=== PATIENT | female | born 1995 | race Two or more races ===

== ENCOUNTER 2024-07-17 06:20 | Day surgery (SDC) | payer MEDICAID, SELFPAY ==
[2024-07-16 10:11] VITALS: BMI 39.6
[2024-07-16 11:49] LABS: Basophils % (Auto) 0 % (0-2.5); Eosinophils # (Auto) 0.2 Thou/mm3 (0.0-0.5); Eosinophils % (Auto) 3 % (0-10); Hematocrit 38.3 % (36.0-46.0); Hemoglobin 12.4 g/dL (12.0-16.0); Immature Granulocytes % (Auto) 0 % (0-0); Immature Granulocytes Auto 0.01 Thou/mm3 (0.00-0.00); Lymphocytes # (Auto) 2.6 Thou/mm3 (1.0-4.8); Lymphocytes % (Auto) 37 % (10-50); Mean Corpuscular HGB Conc 32.4 g/dl (31.0-37.0); Mean Corpuscular Hemoglobin 27.2 pg (25.0-35.0); Mean Corpuscular Volume 84 fL (80-100); Monocytes # (Auto) 0.5 Thou/mm3 (0.0-0.8); Monocytes % (Auto) 7 % (0-12); Neutrophils # (Auto) 3.8 Thou/mm3 (1.8-7.7); Neutrophils % (Auto) 53 % (37-80); Nucleated Red Blood Cell % 0 /100 WBC (0); Platelet Count 343 Thou/mm3 (140-440); RDW Standard Deviation 42.4 fL (36.4-46.3); Red Blood Count 4.56 Miln/mm3 (4.00-5.20); White Blood Count 7.2 Thou/mm3 (3.6-11.0)
[2024-07-16 12:02] LABS: Alanine Aminotransferase 23 U/L (10-49); Albumin, Serum 4.7 gm/dL (3.5-5.0); Albumin/Globulin Ratio 1.5 (1.2-2.2); Alkaline Phosphatase 73 U/L (46-116); Anion Gap 6 (7-16); Aspartate Amino Transferase 22 U/L (0-34); BUN/Creatinine Ratio 10 Ratio (12-20); Bilirubin,Total 0.4 mg/dL (0.3-1.2); Blood Urea Nitrogen 8 mg/dL (9-23); Calcium 9.2 mg/dL (8.3-10.6); Calcium (Corrected) 9.2 mg/dL (8.5-10.1); Carbon Dioxide 26.9 mMol/L (20.0-31.0); Chloride 105 mMol/L (98-107); Creatinine (Component) 0.8 mg/dL (0.6-1.3); Estimated Creatinine Clearance 129.1 mL/min (>60); Globulin 3.2 gm/dL (2.3-3.5); Glucose 91 mg/dL (74-106); Osmolality,Calculated 273 (275-295); Potassium 4.4 mMol/L (3.4-5.1); Sodium 138 mMol/L (136-145); Total Protein 7.9 gm/dL (5.7-8.2); eGFR > 60 See Note
[2024-07-16 12:04] LABS: Partial Thromboplastin Time 30.8 Seconds (22.0-36.0); Prothrombin Time 10.9 Seconds (9.0-12.2)
[2024-07-16 12:29] LABS: HCG Qualitative,Urine Negative
--- NOTE | 2024-07-16 14:14 | SUR.PREOP ---
Pt notified to come in at 0630 tomorrow for surgery.
[2024-07-17] VITALS (7 sets, daily range): BP systolic 93–117; BP diastolic 52–71; PULSE 60–70; RESP 12–20; TEMP 36.2–36.4; O2SAT 98–100; BMI 85.1
--- NOTE | 2024-07-17 08:15 | CHAP ---
Prayed with patient before her procedure.
--- NOTE | 2024-07-17 10:15 | SUR.PHASEI ---
1015: Pt. wakes to name then drifts back to sleep, vitals stable, breathing unlabored, no complaint of pain or nausea, x4 dressing to ABD CDI, no active bleed noted, report received from Oliverio SIMPSON, Félix DICKEY, and MD Mancuso.
--- NOTE | 2024-07-17 10:23 | ESOP_ITS ---
Date of Procedure 07/17/24 Pre Op Diagnosis Symptomatic cholelithiasis Post Op Diagnosis Same Procedure Laparoscopic cholecystectomy Findings Patient was found to have a noninflamed gallbladder with a single stone Procedure Description After endotracheal anesthesia was given the patient was placed in supine position and the abdomen was prepped with chloroprep solution and draped in a sterile manner. After time out was performed I injected a few cc of of half percent Marcaine with epinephrine above the umbilicus because I anticipated ad hesions in the umbilical region from previous section and I made an incision for about 3 cm in length. The fascia was cleaned and Veress needle was inserted to create a pneumoperitoneum up to 15 mmHg. Because of the patient's obesity I could not establish pneumoperitoneum easily with Veress needle. Therefore I opened the peritoneum and introduced a 12 mm trocar. Then introduced a 12 mm trocar and a 10 mm camera through the fascia and I inspected the intra-abdominal organs as well as the gallbladder and the liver. Another 5 mm trocar was inserted in the epigastric region under direct vision after injecting some local anesthesia. At this time the patient was kept in reverse Trendelenburg position with the left lateral tilt. The third 5 mm trocar was inserted over the mid axillary line under direct vision and a Catalino and Gegulshan grasper was used to hold the fundus of the gallbladder. The retraction was carried out by the technical administrative assistant moving the fundus of the gallbladder towards the right shoulder of the patient to create enough traction. I placed a another 5 mm trocar in the midaxillary line just lateral to the rectus muscle under direct vision. I used a fenestrated grasper to retract the neck of the gallbladder laterally towards the patient's right hip. The Calot's triangle was exposed and I achieved the critical view of safety as follows: I dissected out the fatty tissue from the hepatocystic triangle and cleared this area. I also dissected inferior and posterior to the gallbladder to identify the cystic duct and the gallbladder wall. Then superiorly I dissected along the cystic plate up to lower one third third of the gallbladder to lift the gallbladder from the liver. At this time I confirmed that only 2 structures entering the gallbladder were cystic artery and the cystic duct. The common duct was seen distally but no dissection was carried out around the duct. I did not see any need for operative cholangiogram in this patient. The cystic duct was clipped doubly and then divided and cystic artery was similarly dealt with. Then the gallbladder was removed from the liver bed using Harmonic alexi to control the small blood vessels as the dissection proceeded. Then the gallbladder was from the liver bed completely and delivered through the umbilical port using an Endopouch. The liver bed was coagulated with cautery to obtain satisfactory hemostasis. The trocars were pulled out from the abdominal cavity and the fascia at the umbilical incision was closed with interrupted 0 Ethibond. Subcutaneous tissues was closed with 3-0 chromic and injected a few cc of half percent Marcaine with epinephrine and the skin was closed with interrupted 4-0 nylon stitches at all the trocar sites. Dressing was applied with 2 x 2 and T egaderm. Patient tolerated the procedure well and returned to recovery room in stable condition. Anesthesia GETA Pathology / specimen Other (Gallbladder on the stone) IVF Infused 1,000 Estimated Blood Loss 30 Condition Stable Disposition PACU Surgeon Frida Harp MD Surgical Staff Operation Date: 07/17/24 08:30 Case Staff Anesthesiologist: Andi Mancuso RNextractor operator helper: Cherie Orlando
--- NOTE | 2024-07-17 11:02 | SUR.PHASEII ---
1102: Pt. AAOx4, vitals stable, breathing unlabored, no complaint of pain or nausea, dressing to ABD CDI, no active bleed noted, pt. tolerated sips of water well, pt. ambulated to wheelchair with steady gait and no assist, no complications. Gave discharge instructions to the pt. and her ride, both verbalized understanding and had no further questions. Pt. left with all personal belongings.
== END 2024-07-17 11:02 | disposition home or self-care (01) ==
PROVIDERS: Anesthesiology; PCP Family Medicine; Referring Provider Surgery; Visit Provider Surgery
PROC: 0FT44ZZ Resection of Gallbladder, Percutaneous Endoscopic Approach (ICD-10-PCS; CPT 47562; principal; 2024-07-17 08:30)
DX: K80.20 Calculus of gallbladder without cholecystitis without obstruction (principal); F41.9 Anxiety disorder, unspecified; E66.9 Obesity, unspecified; Z68.39 Body mass index [BMI] 39.0-39.9, adult
CPT/HCPCS: 47562; 36415; 80053; 81025; 85025; 85610; 85730; A4217; A4649; J0131; J2250; J2371; J2405; J2704; J2710; J2765; J3010; J3490; A9270; J1596

== ENCOUNTER 2024-11-13 12:20 | Emergency (ER) | payer MEDICAID, SELFPAY ==
[2024-11-13 12:53] VITALS: BP 111/76; PULSE 78; RESP 16; TEMP 36.8; O2SAT 99
--- NOTE | 2024-11-13 12:56 | XR_ITS ---
Examination: Complete OB ultrasound, less than 14 weeks, transabdominal Date and time of exam: November 13, 2024 1409 hours INDICATIONS: Vaginal bleeding beginning today. FINDINGS: Technique: Obstetrical ultrasound images less than 14 weeks performed via transabdominal imaging Findings: A normal shaped single intrauterine gestation is present in the uterus. CRL 1.9 cm corresponds to 8 weeks 3 days gestational age. Cardiac motion 160 BPM Ultrasonographic survey of visible and placental structures unremarkable. Amniotic fluid volume appears appropriate for this estimated gestational age. Right ovary 2.0 cm arterial flow. Left ovary 2.5 cm arterial flow IMPRESSION: Viable intrauterine gestation 8 weeks 3 days
--- NOTE | 2024-11-13 12:57 | PD.EDPREG ---
ED OB Contraction Preg RMI/HPI General Chief complaint: OB/Uterine Contractions Stated complaint: CRAMPING X 3 DAYS; PREG 9 WKS Time Seen by Provider: 11/13/24 12:52 Source: patient Arrival date/time: 11/13/24 12:20 29-year-old female with no known medical history presents to the emergency room with a chief complaint of bilateral abdominal cramping x 3 days. Patient is currently 9 weeks . Patient denies any vaginal bleeding. Mode of arrival: ambulatory Limitations: no limitations Related Data Home Medications ?Medication ?Instructions ?Recorded ?Confirmed semaglutide (weight loss) 2.4 2.4 mg subcut QWEEK 07/16/24 11/14/24 mg/0.75 mL subcutaneous pen injector (Wegovy) Allergies Allergy/AdvReac Type Severity Reaction Status Date / Time No Known Allergies Allergy Verified 11/14/24 10:11 Review of Systems Review of Systems Systems Reviewed: All systems reviewed, normal except as documented Constitutional Constitutional: Reports system reviewed and no additional complaints, except as documented, Denies fatigue, Denies fever(s), Denies headache(s) and Denies weakness Eyes Eyes: Reports system reviewed and no additional complaints, except as documented, Denies blurry vision and Denies change in vision ENT Ears, Nose, Mouth, and Throat: Reports system reviewed and no additional complaints, except as documented, Denies otalgia, Denies headache(s), Denies nasal congestion, Denies throat swelling and Denies vertigo Cardiovascular Cardiovascular: Reports system reviewed and no additional complaints, except as documented, Denies chest pain, Denies dyspnea and Denies dyspnea on exertion Respiratory Respiratory: Reports system reviewed and no additional complaints, except as documented, Denies chest congestion, Denies cough, Denies dyspnea, Denies dyspnea on exertion and Denies wheezing Gastrointestinal Gastrointestinal: Reports system reviewed and no additional complaints, except as documented, Denies abdominal pain, Denies cramping, Denies nausea and Denies vomiting Genitourinary Genitourinary: Reports system reviewed and no additional complaints, except as documented, Denies abnormal vaginal bleeding, Reports flank pain and Reports pelvic pain Musculoskeletal Musculoskeletal: Reports system reviewed and no additional complaints, except as documented and Denies back pain Integumentary/Breasts Skin/Breast: Reports system reviewed and no additional complaints, except as documented and Denies wounds Neurologic Neurologic: Reports system reviewed and no additional complaints, except as documented, Denies confusion, Denies headache(s), Denies lack of coordination, Denies vertigo and Denies weakness Psychiatric Psychiatric: Reports system reviewed and no additional complaints, except as documented, Denies anxiety, Denies confusion, Denies depression, Denies paranoia, Denies suicidal ideation and Denies tactile hallucinations Endocrine Endocrine: Reports system reviewed and no additional complaints, except as documented and Denies fatigue Hematologic/Lymphatic Hematologic/Lymphatic: Reports system reviewed and no additional complaints, except as documented and Denies lymphadenopathy Allergic/Immunologic Allergic/Immunologic: Reports system reviewed and no additional complaints, except as documented, Denies throat swelling, Denies urticaria and Denies wheezing ED Exam General Limitations: Present no limitations General appearance: Present alert and in no apparent distress Head Head exam: Present atraumatic Eye Eye exam: Present normal appearance, PERRL and EOMI ENT ENT exam: Present normal exam, normal oropharynx and mucous membranes moist Neck Neck exam: Present normal inspection, full ROM and trachea midline Chest Chest inspection: Present normal inspection and symmetric chest wall rise Respiratory Respiratory exam: Present normal lung sounds bilaterally Cardiovascular Cardiovascular exam: Present regular rate, normal rhythm and normal heart sounds Abdominal Exam Abdominal exam: Present soft, tenderness and normal bowel sounds; Absent distention, guarding, rebound or rigidity Abdominal tenderness: Present suprapubic and mild Extremities Exam Extremities exam: Present normal inspection and full ROM Back Exam Back exam: Present normal inspection and full ROM Neurological Exam Neurological exam: Present alert, oriented X3 and CN II-XII intact Psychiatric Psychiatric exam: Present normal affect and normal mood Skin Skin exam: Present warm, dry, intact and normal color Course Quality Measures none Orders Category Date Time Status US OB <= 14 weeks fetus Stat Exams 11/13/24 12:56 Completed ABO/RH Type Stat Lab 11/13/24 13:04 Completed Beta HCG,Quantitative Stat Lab 11/13/24 13:04 Completed CBC Stat Lab 11/13/24 13:04 Completed CMP [Comprehensive Metabolic Panel] Stat Lab 11/13/24 13:04 Completed UA [Urinalysis] Stat Lab 11/13/24 13:30 Completed Vital Signs Vital signs: Vital Signs Temperature 98.3 F 11/13/24 12:53 Pulse Rate 78 11/13/24 12:53 Respiratory Rate 16 11/13/24 12:53 Blood Pressure 111/76 11/13/24 12:53 Pulse Oximetry (%) 99 11/13/24 12:53 Oxygen Delivery Method Room Air 11/13/24 12:53 OB/Uterine Contractions MDM Narrative MDM Narrative:: 29-year-old female with no known medical history presents to the emergency room with a chief complaint of bilateral abdominal cramping x 3 days. Patient is currently 9 weeks . Patient denies any vaginal bleeding. Patient is hemodynamically stable and in no apparent distress Physical examination shows some bilateral pelvic cramping with palpation. Patient denies any dysuria nausea vomiting or any upper abdominal pain Ultrasound was completed and shows a viable intrauterine gestation at 8 weeks and 3 days. heart tones at 160 bpm. There is no ectopic . hCG level is a 97,171 Patient was discharged and educated to follow-up with primary care provider in the next 24 to 48 hours and return to the emergency room for any evidence of worsening signs or symptoms Patient data External records reviewed:: [facility] previous records Clinical information provided by:: patient Social determinants that could affect healthcare access:: none Patient has the following chronic illnesses:: No chronic illness How is presenting disease/condition affected by chronic disease/condition?: no chronic disease Evaluation data The following diagnostics were reviewed and interpreted by me:: lab results and radiology exam(s) Lab and/or radiology exams considered but not ordered:: Labs and radiology exams considered and ordered Interpretation Summary: OB ultrasound-Findings: A normal shaped single intrauterine gestation is present in the uterus. CRL 1.9 cm corresponds to 8 weeks 3 days gestational age. Cardiac motion 160 BPM Ultrasonographic survey of visible and placental structures unremarkable. Amniotic fluid volume appears appropriate for this estimated gestational age. Right ovary 2.0 cm arterial flow. Left ovary 2.5 cm arterial flow IMPRESSION: Viable intrauterine gestation 8 weeks 3 days Medications / Prescriptions Medications or Prescriptions considered but not ordered:: Medication given Medication administrations:: Medication given Consultations Consultation(s) initiated? (list below): No Diagnosis OB Contractions Differential Diagnosis: other (Ectopic /urinary tract infection/subchorionic hemorrhage/pelvic pain) Most likely diagnosis given after review of the tests above:: Pelvic pain Admission Indicated Admission indicated?: not indicated Explain why admission is indicated or not indicated:: N/A Admission Request Was there a request for admission?: No Disposition Plan Disposition Plan: Discharge Discharge Attestation Discharge Attestation: The patient and all family members were given an opportunity to ask questions and understood the discharge instructions. Discharge instructions specifically effects, indications for sooner follow up or return to the emergency department, and the expected course of current diagnosis. Patient condition: Stable Discharge Plan Plan Patient Disposition: HOME (Self Care) Discharge Disposition comment: Stable Prescriptions/Referrals Prescriptions/Med Rec: No Action Wegovy 2.4 mg/0.75 mL pen injector 2.4 mg SUBCUT QWEEK Patient Comments: INJECT 2.4 MG SUBCUTANEOUSLY ONCE A WEEK Referrals: Haim Brooks MD [Primary Care Provider] - In 1 week Problem List Clinical Impression: Pelvic pain affecting Patient/Caregiver Discharge Instructions Education Materials: Bleeding During Early Additional Instructions: Please follow-up with your CLINICAL STATISTICS MANAGER in the next 24 to 48 hours Currently your is in good standing at 8 weeks and 3 days. Your heart tones are 160 bpm and your hCG levels are at 97,171 For any evidence of worsening signs or symptoms return to the emergency room immediately Print Language: Hungarian Stand Alone Forms: [facility]az Award Info., Patient Portal Info Letter PA/JOHNSON Supervising Physician MEAGHAN/JOHNSON Supervising Physician: Dr. Kemp
[2024-11-13 13:23] LABS: Basophils # (Auto) 0.0 Thou/mm3 (0.0-0.2); Basophils % (Auto) 0 % (0-2.5); Eosinophils # (Auto) 0.1 Thou/mm3 (0.0-0.5); Eosinophils % (Auto) 1 % (0-10); Hematocrit 34.6 % (36.0-46.0); Hemoglobin 11.4 g/dL (12.0-16.0); Immature Granulocytes Auto 0.03 Thou/mm3 (0.00-0.00); Lymphocytes # (Auto) 1.9 Thou/mm3 (1.0-4.8); Lymphocytes % (Auto) 24 % (10-50); Mean Corpuscular HGB Conc 32.9 g/dl (31.0-37.0); Mean Corpuscular Hemoglobin 27.6 pg (25.0-35.0); Mean Corpuscular Volume 84 fL (80-100); Monocytes # (Auto) 0.5 Thou/mm3 (0.0-0.8); Monocytes % (Auto) 6 % (0-12); Neutrophils # (Auto) 5.5 Thou/mm3 (1.8-7.7); Neutrophils % (Auto) 69 % (37-80); Nucleated Red Blood Cell # 0.00 Thou/mm3 (0.00-0.00); Nucleated Red Blood Cell % 0 /100 WBC (0); Platelet Count 306 Thou/mm3 (140-440); RDW Standard Deviation 47.3 fL (36.4-46.3); Red Blood Count 4.13 Miln/mm3 (4.00-5.20); White Blood Count 8.1 Thou/mm3 (3.6-11.0)
[2024-11-13 13:51] LABS: Alanine Aminotransferase < 7 U/L (10-49); Albumin, Serum 4.0 gm/dL (3.5-5.0); Albumin/Globulin Ratio 1.5 (1.2-2.2); Alkaline Phosphatase 61 U/L (46-116); Anion Gap 9 (7-16); Aspartate Amino Transferase 10 U/L (0-34); BUN/Creatinine Ratio 8 Ratio (12-20); Bilirubin,Total 0.5 mg/dL (0.3-1.2); Blood Urea Nitrogen 7 mg/dL (9-23); Calcium 9.4 mg/dL (8.3-10.6); Calcium (Corrected) 9.4 mg/dL (8.5-10.1); Carbon Dioxide 24.2 mMol/L (20.0-31.0); Chloride 107 mMol/L (98-107); Creatinine (Component) 0.9 mg/dL (0.6-1.3); Estimated Creatinine Clearance 112.5 mL/min (>60); Globulin 2.7 gm/dL (2.3-3.5); Glucose 91 mg/dL (74-106); Osmolality,Calculated 277 (275-295); Potassium 4.2 mMol/L (3.4-5.1); Sodium 140 mMol/L (136-145); Total Protein 6.7 gm/dL (5.7-8.2); eGFR > 60 See Note
[2024-11-13 13:54] LABS: Collection Type, Urine Clean Catch
[2024-11-13 14:09] LABS: Amorphous Crystals,Urine Present (Absent); Bacteria,Urine Rare; Bilirubin,Urine Negative (Negative); Blood,Urine Negative (Negative); Clarity,Urine Clear (Clear/Hazy); Color,Urine Yellow (Lt Yel-Yel); Glucose, Urine Negative (Negative); Ketones,Urine Negative (Negative); Leukocyte Esterase,Urine Positive (Negative); Nitrite,Urine Negative (Negative); PH,Urine 6.5 (5.0-7.0); Protein,Urine Negative (Neg - Trace); RBC,Urine 9 /hpf (0-3); Specific Gravity,Urine 1.027 (1.001-1.035); Squamous Epithelial Cell,Urine 3 /hpf (0-5); Urobilinogen,Urine Negative mg/dL (0.0-1.0); WBC,Urine 3 /hpf (0-5)
[2024-11-13 14:58] LABS: Beta HCG,Quantitative 97171 mIU/mL (<5.0)
== END 2024-11-13 16:06 | disposition home or self-care (01) ==
PROVIDERS: Nurse Practitioner Family; Emergency Provider Emergency Medicine; PCP Family Medicine
DX: O99.891 Other specified diseases and conditions complicating pregnancy (principal); R10.2 Pelvic and perineal pain; O20.9 Hemorrhage in early pregnancy, unspecified; Z3A.08 8 weeks gestation of pregnancy
CPT/HCPCS: 36415; 76801; 80053; 81001; 84702; 85025; 86900; 86901; 99283

== ENCOUNTER 2024-11-14 09:40 | Outpatient (AMB) | payer MEDICAID, SELFPAY ==
[2024-11-14 10:09] VITALS: BP 117/79; PULSE 79; RESP 16; TEMP 36.2; O2SAT 98; BMI 39.9
--- NOTE | 2024-11-14 10:09 | AMB.OBINITIA ---
Vital Signs 11/14/24 10:09 Height 1.65 m Height Method Stated Weight 108.635 kg Weight Measurement Method Standing Scale BMI 39.9 BP 117/79 Blood Pressure Source Automatic Cuff Blood Pressure Location Left Upper Arm Position Sitting Respiration 16 Pulse 79 Pulse Source Monitor Temp 97.2 F Temp Source Oral Pulse Oximetry (%) 98 Oxygen Delivery Method Room Air Allergies/Home Meds Allergies & Medications Allergies No Known Allergies Allergy (Verified 11/14/24 10:11) Medication Reconciliation semaglutide (weight loss) 2.4 mg/0.75 mL subcutaneous pen injector (Wegovy) 2.4 mg subcut QWEEK 07/16/24 [History Confirmed 11/14/24] Intake Visit Data Collection New Patient or Established: Established Patient (seen at [facility] within 3 years) Reason for Visit:: OBI Seen by Clinical Staff ONLY (RN/MA): No Certified Respiratory Therapist Required: No Do You Feel Safe at Home: Yes Authorities Contacted: N/A PCP or OBGYN visit in last 3 months: Yes Date of Last PCP or OBGYN visit: 11/13/24 Hx Now: Yes Are you currently on any form of Control: No Last menstrual period: 09/04/24 Pain Present Currently: No Pain Scale Used: Maddox-Yap/Numerical Pain scale:: 0 Smoking Status Smoking Status: Never smoker Questionnaires Covid-19 Vaccine Questionnaire Has patient been vacinated for Covid-19 Have you been vacinated for Covid-19: No PHQ-9 PHQ-2 Over the last 2 weeks, how often have you been bothered by any of the following problems? 1. Little interest or pleasure in doing things: not at all 2. Feeling down, depressed, or hopeless: not at all Total score: 0 PHQ-9 3. Trouble falling or staying asleep, or sleeping too much: Not at all 4. Feeling tired or having little energy: Not at all 5. Poor appetite or overeating: Not at all 6. Feeling bad about yourself - or that you are a failure or have let yourself or your family down: Not at all 7. Trouble concentrating on things, such as reading the newspaper or watching television: Not at all 8. Moving or speaking so slowly that other people could have noticed? - Or the opposite - being so fidgety or restless that you have been moving around a lot more than usual: not at all 9. Thoughts that you would be better off or of hurting yourself in some way: Not at all Total score: 0 If you checked off any problems, how difficult have these problems made it for you to do your work, take care of things at home, or get along with other people?: not difficult at all Source: Developed by Drs. Michael Braswell, Dena Jones, Moris Brenner and colleagues, with an educational juan j from [employer]. Depression screen completed yes Social History Living Situation History Marital Status: Lives With: Family Housing: House Tobacco History Smoking Status: Never smoker Second Hand Smoke Exposure: No Alcohol History Alcohol Intake: Never Domestic Abuse History Do You Feel Safe at Home: Yes History of Present Illness HPI Narrative Mehnaz Garcia, a 5 para 3 patient with a history of three previous C-sections, presents for her first visit of her current . She reports her last menstrual period was on September 05, 2019, placing her at approximately 10 weeks and one day gestation. The patient had an ultrasound at [facility] on October 27, 2019, which dated the at 6 weeks and 2 days with a heart rate of 116 beats per minute. Due to a discrepancy of more than one week, her estimated due date was adjusted to June 19, 2025, based on the 6-week ultrasound. Yesterday, the patient visited the emergency room due to cramping. An ultrasound was performed, showing a crown-rump length corresponding to 8 weeks and 3 days gestation, with a heart rate of 160 beats per minute. The patient reports she is currently experiencing cramping but denies any spotting. The patient's obstetrical history is significant for her first in 2014 at 33 weeks due to pre-eclampsia. Her most recent was complicated by cholestasis. She is currently taking vitamins as prescribed. 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 Please see notes Menstrual History Menstrual reliability: definite Flow: normal Menstrual regularity: regular Monthly: Yes Age at menarche: 11 On control pills at conception: No OB History : 5 Para: 3 Hx # Pregnancies: 0 Hx Total # of Abortions (Spontaneous & Elective): 1 # of Living Children: 3 Delivery History 1st : Child's name: NA date: 12/01/14 sex: male Delivery type: Delivery complications: PRE-CLAMPSIA History of depression before or after : No 2nd : Child's name: NA date: 11/05/15 sex: female Delivery type: History of depression before or after : No 3rd : Child's name: NA date: 02/08/02 sex: male Delivery type: History of depression before or after : No Infection History & Risk Evaluation History of STDs: none HIV risk evaluation: low risk Hepatitis B risk evaluation: low risk Patient or partner has history of Genital Herpes: No Varicella/chicken pox status: immunized Genetic Screening & History Genetic Screening/Teratology Counseling - Includes patient, baby's father, or anyone in either family with: 1. Patient's age 35 years or older as of estimated date of delivery: No 2. Thalassemia (Cook Islander, Brazilian, Mediterranean, or Background); MCV less than 80: No 3. Neural Tube Defect (Meningomyelocele, Spina Bifida, or Anencephaly): No 4. Congenital Heart Defect: No 5. Down Syndrome: No 6. Kranthi-Sachs (Ashkenazi Baptism, Cajun, Bhutanese Robertson): No 7. Sylvie Disease (Ashkenazi Baptism): No 8. Familial Dysautonomia (Ashkenazi Baptism): No 9. Sickle Cell Disease or Trait (): No 10. Hemophilia or other blood disorders: No 11. Muscular Dystrophy: No 12. Cystic Fibrosis: No 13. Wilbarger's Chorea: No 14. Mental Retardation/Autism: No 15. Other inherited genetic or chromosomal disorder: No 16. Maternal Metabolic Disorder (EG,TYPE 1 Diabetes, PKU): No 17. Patient or baby's father had a child with defects not listed above: No 18. Recurrent loss or a stillbirth: No 19. Medications (including supplements, vitamins, herbs or otc drugs)/illicit/recreational drugs/alcohol since last menstrual period: No 20. Any other: No Infection History 1. Live with someone with TB or exposed to TB: No 2. Rash or viral illness since last menstrual period: No 3. Hepatitis B,C: No Other (see comments) Source: [employer] Exam General General Appearance: alert, in no apparent distress and healthy appearing Head Head exam: atraumatic Neck Neck exam: Present normal inspection and trachea midline Chest Chest inspection: Present normal inspection and symmetric chest wall rise External exam: Present normal external exam; Absent tenderness Neuro Neurological exam: Present oriented X3 Psych Psychiatric exam: Present normal affect and normal mood Office Procedures OB Clinic LOC & Office Proc's Nursing/Assessment Patient Status: Established Patient OB Clinic Nursing Assessment: Medication Reconciliation, Update PMH in EMR and Vital Signs OB Clinic Coordination of Care: Education Complex Pt/Fam, Consent,records obtained, informed consent, Lab and Imaging orders and Staff clarify orders Special Needs: Heart tones Established Patient Charge Established Patient Point Assignment: 110 Established Patient Point Charge: EP Level 3 (80-115) Assessment & Plan Diagnosis / Problem List (1) Supervision of high risk , unspecified, first trimester: Status: Acute (2) Maternal care for low transverse scar from previous delivery: Status: Acute Plan Intrauterine , 9 weeks gestation Assessment: Patient is at 9 weeks gestation based on ultrasound dating. Last menstrual period was 09/05/2019, initially placing her at 10 weeks and 1 day. However, ultrasound on 10/27/2019 showed 6 weeks and 2 days gestation with heart rate of 116 bpm. Most recent ultrasound yesterday in the ER showed crown-rump length corresponding to 8 weeks and 3 days with heart rate of 160 bpm. Due to more than one-week discrepancy, final estimated due date is set to 06/19/2025 based on the 6-week ultrasound. Patient reports cramping but denies spotting. Plan: - Perform routine labs today - Order NIPT for genetic screening and sex determination - Schedule follow-up appointment in 2 weeks for ultrasound and review of lab results - Continue vitamins History of preeclampsia and cholestasis Assessment: Patient has a history of preeclampsia in her first at 33 weeks gestation in 2014, resulting in . She also reports a history of cholestasis in her last . Both conditions increase the risk of recurrence in current . Plan: - Monitor closely for signs and symptoms of preeclampsia and cholestasis throughout - Defer initiation of aspirin for preeclampsia prevention until 15 weeks gestation due to current risk of miscarriage History of multiple C-sections Assessment: Patient has a history of 3 previous C-sections, including one and two full-term deliveries. This history increases the risk of complications in current and delivery. Plan: - Continue to monitor closely throughout - Discuss risks and benefits of repeat versus trial of labor after at future visits
== END 2024-11-14 10:52 | disposition home or self-care (01) ==
LOC: HODSOBC 09:40
PROVIDERS: PCP Family Medicine; Referring Provider Family Medicine; Supervising Provider Obstetrics & Gynecology; Visit Provider Obstetrics & Gynecology
DX: O09.291 Supervision of pregnancy with other poor reproductive or obstetric history, first trimester (principal); O34.211 Maternal care for low transverse scar from previous cesarean delivery; Z3A.09 9 weeks gestation of pregnancy; Z87.59 Personal history of other complications of pregnancy, childbirth and the puerperium
CPT/HCPCS: 99213; G0463

== ENCOUNTER 2024-12-03 15:54 | Outpatient (AMB) | payer MEDICAID, SELFPAY ==
[2024-12-03 16:09] VITALS: BP 113/77; PULSE 97; RESP 18; TEMP 36.6; O2SAT 97; BMI 40.1
--- NOTE | 2024-12-03 16:09 | OBCLNT_ITS ---
Vital Signs 12/03/24 16:09 Height 1.65 m Height Method Stated Weight 109.429 kg Weight Measurement Method Standing Scale BMI 40.1 BP 113/77 Blood Pressure Source Automatic Cuff Blood Pressure Location Left Upper Arm Position Sitting Respiration 18 Pulse 97 Pulse Source Monitor Temp 98 F Temp Source Oral Pulse Oximetry (%) 97 Oxygen Delivery Method Room Air Allergies/Home Meds Allergies & Medications Allergies No Known Allergies Allergy (Verified 12/03/24 16:10) Medication Reconciliation aspirin 81 mg tablet 81 mg PO QDAY 90 days #90 tabs 12/03/24 [Rx] Intake Visit Data Collection New Patient or Established: Established Patient (seen at [facility] within 3 years) Reason for Visit:: CARE Seen by Clinical Staff ONLY (RN/MA): No International Marketing Intern Required: No Do You Feel Safe at Home: Yes Authorities Contacted: N/A PCP or OBGYN visit in last 3 months: Yes Hx Now: Yes Are you currently on any form of Control: No Pain Present Currently: No Pain Scale Used: Maddox-Yap/Numerical Pain scale:: 0 Smoking Status Smoking Status: Never smoker Questionnaires Covid-19 Vaccine Questionnaire Has patient been vacinated for Covid-19 Have you been vacinated for Covid-19: Yes PHQ-9 PHQ-2 Over the last 2 weeks, how often have you been bothered by any of the following problems? 1. Little interest or pleasure in doing things: not at all 2. Feeling down, depressed, or hopeless: not at all Total score: 0 PHQ-9 3. Trouble falling or staying asleep, or sleeping too much: Not at all 4. Feeling tired or having little energy: Not at all 5. Poor appetite or overeating: Not at all 6. Feeling bad about yourself - or that you are a failure or have let yourself or your family down: Not at all 7. Trouble concentrating on things, such as reading the newspaper or watching television: Not at all 8. Moving or speaking so slowly that other people could have noticed? - Or the opposite - being so fidgety or restless that you have been moving around a lot more than usual: not at all 9. Thoughts that you would be better off or of hurting yourself in some way: Not at all Total score: 0 Source: Developed by Drs. Michael Braswell, Dena Jones, Moris Brenner and colleagues, with an educational juan j from [employer]. 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 Please see notes 12/03/24 -?-?-?-?-?-?-?-?-?-?-?-?- 11w 5d 109.429 kg 113/77 160 The patient has a history of . Denies WORKMAN, VC, and epigastric pain. - Mehnaz Garcia is presenting for a pr enatal appointment at 11 weeks and 5 days gestation. - She is a 5 para 3. - Patient has a history of . - MFM ultrasound performed today for nuc skye translucency scan. - Results are still pending. - Bedside ultrasound shows heart rate of 160 bpm. Plan - Review pending results of MFM ultrasou nd for nuchal translucency - Attend scheduled 2nd trimester anatomy ultrasound for placenta assessment in January - Continue routine care and mon itoring YOEL Calculator Estimated Delivery Date Method Current WG Current Estimate 06/19/25 Ultrasound #1 11w 6d Other Estimates 06/11/25 LMP (Uncertain) 13w 0d Notes Visit Date: 12/03/24 Last Updated by: José Miguel Brice MD - Hepatitis B: Negative - Hepatitis C: Negative - RPR: Non-reactive - Rubella: Immune - ABO: Positive - Antibody screen: Negative - HIV: Non-reactive - Gonorrhea: Negative - Chlamydia: Negative - Hemoglobin: 11.2 g/dL - Platelets: 308 - A1c: 5.2% - NIPT genome testing: Negative, consistent with female - SMS screening: Negative - CF screening: Negative - Bedside ultrasound: FHR 160 bpm Assessment & Plan Diagnosis / Problem List (1) Maternal care for low transverse scar from previous delivery: Status: Acute (2) Supervision of high risk , unspecified, first trimester: Status: Acute Plan Problem List - , 11 weeks 5 days gestation - History of section Assessment patient at 11 weeks 5 days gestation presenting for appointment. Initial labs reveal: Hepatitis B negative, Hepatitis C negative, RPR non- reactive, Rubella immune, ABO positive, antibody screen negative, HIV non- reactive, gonorrhea and chlamydia negative. Hemoglobin 11.2, platelets 308. A1c 5.2. NIPT genome testing negative, consistent with female fetus. SMS screening negative, CF screening negative. Patient has history of . MFM ultrasound performed today for nuchal translucency, results pending. Bedside ultrasound shows FHR 160. Plan - Review pending results of MFM ultrasound for nuchal translucency - Attend scheduled 2nd trimester anatomy ultrasound for placenta assessment in January - Continue routine care and monitoring
== END 2024-12-03 16:16 | disposition home or self-care (01) ==
LOC: HODSOBC 15:54
PROVIDERS: Supervising Provider Obstetrics & Gynecology; Visit Provider Obstetrics & Gynecology
DX: O09.291 Supervision of pregnancy with other poor reproductive or obstetric history, first trimester (principal); O34.211 Maternal care for low transverse scar from previous cesarean delivery; Z3A.11 11 weeks gestation of pregnancy
CPT/HCPCS: 99214; G0463

== ENCOUNTER 2025-01-08 09:03 | Outpatient (AMB) | payer MEDICAID, SELFPAY ==
[2025-01-08 09:05] VITALS: BP 110/75; PULSE 76; RESP 14; TEMP 36.5; O2SAT 99; BMI 40.8
--- NOTE | 2025-01-08 09:05 | OBCLNT_ITS ---
Vital Signs 01/08/25 09:05 Height 1.65 m Height Method Stated Weight 111.244 kg Weight Measurement Method Standing Scale BMI 40.8 BP 110/75 Blood Pressure Source Automatic Cuff Blood Pressure Location Left Upper Arm Position Sitting Respiration 14 Pulse 76 Pulse Source Monitor Temp 97.7 F Temp Source Oral Pulse Oximetry (%) 99 Oxygen Delivery Method Room Air Allergies/Home Meds Allergies & Medications Allergies No Known Allergies Allergy (Verified 01/08/25 09:11) Medication Reconciliation aspirin 81 mg tablet 81 mg PO QDAY 90 days #90 tabs 12/03/24 [Rx Confirmed 01/08/25] vits no.126-ferrous fum 28 mg iron-folic acid 800 mcg tablet (Classic ) 1 tab PO QDAY 90 days #90 tabs 01/08/25 [Rx] Intake Visit Data Collection New Patient or Established: Established Patient (seen at [facility] within 3 years) Reason for Visit:: CARE Seen by Clinical Staff ONLY (RN/MA): No Shipping Supervisor Required: No Do You Feel Safe at Home: Yes Authorities Contacted: N/A PCP or OBGYN visit in last 3 months: Yes Hx Now: Yes Are you currently on any form of Control: No Pain Present Currently: No Pain Scale Used: Maddox-Yap/Numerical Pain scale:: 0 Smoking Status Smoking Status: Never smoker Immunizations Flu Vaccine in the Last 12 Months: Yes Flu Vaccine Exclusion Criteria: Already Received Questionnaires Covid-19 Vaccine Questionnaire Has patient been vacinated for Covid-19 Have you been vacinated for Covid-19: Yes PHQ-9 PHQ-2 Over the last 2 weeks, how often have you been bothered by any of the following problems? 1. Little interest or pleasure in doing things: not at all 2. Feeling down, depressed, or hopeless: not at all Total score: 0 PHQ-9 3. Trouble falling or staying asleep, or sleeping too much: Not at all 4. Feeling tired or having little energy: Not at all 5. Poor appetite or overeating: Not at all 6. Feeling bad about yourself - or that you are a failure or have let yourself or your family down: Not at all 7. Trouble concentrating on things, such as reading the newspaper or watching television: Not at all 8. Moving or speaking so slowly that other people could have noticed? - Or the opposite - being so fidgety or restless that you have been moving around a lot more than usual: not at all 9. Thoughts that you would be better off or of hurting yourself in some way: Not at all Total score: 0 Source: Developed by Drs. Michael Braswell, Dena Jones, Moris Brenner and colleagues, with an educational juan j from [employer]. 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 Please see notes 12/03/24 -?-?-?-?-?-?-?-?-?-?-?-?- 11w 5d 109.429 kg 113/77 160 The patient has a history of . Denies WORKMAN, VC, and epigastric pain. - Mehnaz Garcia is presenting for a pr enatal appointment at 11 weeks and 5 days gestation. - She is a 5 para 3. - Patient has a history of . - MFM ultrasound performed today for nuc skye translucency scan. - Results are still pending. - Bedside ultrasound shows heart rate of 160 bpm. Plan - Review pending results of MFM ultrasou nd for nuchal translucency - Attend scheduled 2nd trimester anatomy ultrasound for placenta assessment in January - Continue routine care and mon itoring 01/08/25 -?-?-?-?-?-?-?-?-?-?-?-?- 16w 6d 111.244 kg 110/75 165 - She reports starting to feel some movement. - Patient denies nausea, vomiting, or ot her issues and states everything is going well so far. - She ran out of vitamins after forgetting them at her sister's house over the weekend. - Patient has been prescribed baby aspir in but was uncertain about timing to start, waiting for clarification on whether to begin at 15 or 16 weeks gestation. - She reports adherence to prescribed medications when available. - Continue baby aspirin daily at consistent time until delivery - New prescription for vitamins to be sent to [facility] pharmacy - Follow-up appointment scheduled in 4 w eeks - Anatomy ultrasound scheduled for 02-04 - Monitor placenta placement due to hist ory of C-sections - Monitor for cholestasis and hypertensi on (noting these typically occur after 30 weeks gestation) YOEL Calculator Estimated Delivery Date Method Current WG Current Estimate 06/19/25 Ultrasound #1 16w 6d Other Estimates 06/11/25 LMP (Uncertain) 18w 0d Notes Visit Date: 01/08/25 Last Updated by: José Miguel Brice MD - Date: 12/04/2024 - Maternal ultrasound: Dates consistent with established dates, cervix could not be visualized, both adnexa appeared unremarkable Visit Date: 12/03/24 Last Updated by: José Miguel Brice MD - Hepatitis B: Negative - Hepatitis C: Negative - RPR: Non-reactive - Rubella: Immune - ABO: Positive - Antibody screen: Negative - HIV: Non-reactive - Gonorrhea: Negative - Chlamydia: Negative - Hemoglobin: 11.2 g/dL - Platelets: 308 - A1c: 5.2% - NIPT genome testing: Negative, consistent with female - SMS screening: Negative - CF screening: Negative - Bedside ultrasound: FHR 160 bpm Office Procedures OBC Clinic LOC & Office Proc's Nursing/Assessment Patient Status: Established Patient OB Clinic Nursing Assessment: Medication Reconciliation, Update PMH in EMR and Vital Signs OB Clinic Coordination of Care: Complex Care and Chronic Disease 1-5, Consent,records obtained, informed consent, Education Simp Pt/Fam, 1 Ins Author ization, Lab and Imaging orders, Results/Orders obtained and Staff clarify orders Special Needs: Heart tones Established Patient Charge Established Patient Point Assignment: 150 Established Patient Point Charge: EP Level 4 (120-155) Assessment & Plan Diagnosis / Problem List (1) Maternal care for low transverse scar from previous delivery: Status: Acute (2) Supervision of high risk , unspecified, first trimester: Status: Acute Plan Problem List - - Placenta previa - Obesity - Cholestasis of - Eclampsia Assessment 5 para 3 at 16 weeks 6 days gestation with multiple high-risk factors including history of three prior sections with entry placenta, elevated BMI of 40, previous cholestasis, and history of eclampsia. Recent maternal ultrasound on 12/04/2024 showed dates consistent with established gestational age, cervix could not be visualized, and both adnexa appeared unremarkable. Current heart rate is 142 bpm with normal activity noted on ultrasound. Patient reports beginning to feel movements and denies nausea, vomiting, or other concerning symptoms at this time. Plan - Continue baby aspirin daily at consistent time until delivery - New prescription for vitamins to be sent to [facility] pharmacy - Follow-up appointment scheduled in 4 weeks - Anatomy ultrasound scheduled for 02-04-2025 - Monitor placenta placement due to history of C-sections - Monitor for cholestasis and hypertension (noting these typically occur after 30 weeks gestation) 1. Progress Reviewed gestational age, growth, and heart rate. Planned frequent visits (every 2 weeks until 36 weeks, then weekly). 2. Instructed patient to monitor movements and report decreases immediately. 3. Testing Counseled on routine third-trimester labs per guidelines. Discussed potential need for ultrasound or monitoring based on risk factors. 4. Preeclampsia Precaution Educated on preeclampsia signs: severe headache, vision changes, right upper quadrant pain, sudden swelling. Advised urgent reporting of symptoms and discussed blood pressure monitoring if high risk. 5. Labor Precautions Reviewed labor signs: regular contractions, pelvic pressure, back pain, bleeding, or fluid leakage. Instructed to seek immediate care for these symptoms. 6. Lifestyle and Delivery Preparation Reinforced vitamins, nutrition, and safe activity. Discussed plan, pain management, and . Advised on labor preparation (e.g., hospital bag) and expectations. 7. Psychosocial Support Assessed emotional well-being and offered resources for mental health or parenting support.
== END 2025-01-08 09:40 | disposition home or self-care (01) ==
LOC: HODSOBC 09:03
PROVIDERS: Supervising Provider Obstetrics & Gynecology; Visit Provider Obstetrics & Gynecology
DX: O09.292 Supervision of pregnancy with other poor reproductive or obstetric history, second trimester (principal); O34.211 Maternal care for low transverse scar from previous cesarean delivery; O09.892 Supervision of other high risk pregnancies, second trimester; O99.212 Obesity complicating pregnancy, second trimester; Z3A.16 16 weeks gestation of pregnancy; Z87.59 Personal history of other complications of pregnancy, childbirth and the puerperium
CPT/HCPCS: 99214; G0463

== ENCOUNTER 2025-01-09 11:00 | Emergency (ER) | payer MEDICAID, SELFPAY ==
[2025-01-09 11:00] VITALS: BMI 40.7
[2025-01-09 11:05] VITALS: BP 124/88; PULSE 67; RESP 17; TEMP 36.8; O2SAT 100
--- NOTE | 2025-01-09 11:06 | EKG_ITS ---
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
--- NOTE | 2025-01-09 11:26 | PD.EDDIZZY ---
ED Dizzyness RME/HPI General Chief Complaint: Dizziness Stated Complaint: dizziness 17 weeks Time Seen by Provider: 01/09/25 11:18 Arrival date/time: 01/09/25 11:00 29-year-old patient presents emergency department with complaint of dizziness and lightheadedness that began this morning. 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 She denies nausea or vomiting she denies vaginal bleeding she denies any alleviating or aggravating factors. She has a dedicated OB doctor. Related Data Previous Rx's ?Medication ?Instructions ?Recorded aspirin 81 mg tablet 81 mg PO QDAY 90 days #90 tabs 12/03/24 vits no.126-ferrous fum 1 tab PO QDAY 90 days #90 tabs 01/08/25 28 mg iron-folic acid 800 mcg tablet (Classic ) cefdinir 300 mg capsule 300 mg PO BID 7 days #14 caps 01/09/25 meclizine 25 mg tablet 25 mg PO TID 7 days #21 tabs 01/09/25 Allergies Allergy/AdvReac Type Severity Reaction Status Date / Time No Known Allergies Allergy Verified 01/08/25 09:11 Review of Systems Review of Systems Systems Reviewed: All systems reviewed, normal except as documented Constitutional Constitutional: Reports system reviewed and no additional complaints, except as documented Eyes Eyes: Reports system reviewed and no additional complaints, except as documented ENT Ears, Nose, Mouth, and Throat: Reports dizziness Cardiovascular Cardiovascular: Reports system reviewed and no additional complaints, except as documented Gastrointestinal Gastrointestinal: Reports system reviewed and no additional complaints, except as documented Neurologic Neurologic: Reports dizziness Psychiatric Psychiatric: Reports system reviewed and no additional complaints, except as documented ED Exam General General appearance: Present alert and in no apparent distress Head Head exam: Present atraumatic and normocephalic Eye Eye exam: Present normal appearance and nystagmus Expanded ENT Exam External ear exam: Present normal external inspection Neck Neck exam: Present normal inspection and full ROM Respiratory Respiratory exam: Present normal lung sounds bilaterally Cardiovascular Cardiovascular exam: Present regular rate and normal rhythm Course Quality Measures none Orders Category Date Time Status EKG (ED ONLY) *Do not use* NOW Care 01/09/25 11:06 Completed EKG (ED Only) Stat Exams 01/09/25 11:06 Draft US OB >= 14 weeks Fetus Stat Exams 01/09/25 11:31 Completed CBC Stat Lab 01/09/25 11:56 Completed CMP [Comprehensive Metabolic Panel] Stat Lab 01/09/25 11:56 Completed Urinalysis, C/S if Indicated Stat Lab 01/09/25 11:55 Completed Vital Signs Vital signs: Vital Signs Temperature 98.2 F 01/09/25 11:05 Pulse Rate 67 01/09/25 11:05 Respiratory Rate 17 01/09/25 11:05 Blood Pressure 124/88 H 01/09/25 11:05 Pulse Oximetry (%) 100 01/09/25 11:05 Oxygen Delivery Method Room Air 01/09/25 11:05 Dizziness MDM Narrative MDM Narrative:: 29-year-old patient presents emergency department with complaint of dizziness that started this morning on physical exam patient displays nystagmus. Given patient's status blood work, UA, EKG, and OB ultrasound were ordered which were all unremarkable signs and symptoms appears likely to be nystagmus. UA also indicated UTI patient will be DC'd home with oral antibiotics and meclizine. I considered preeclampsia, hypertension, anemia, as part of my differential however lab works was negative for anemia vital signs negative for hypertension and also blood work was negative for preeclampsia. Patient is stable to DC home to follow-up with [employer] Patient data External records reviewed:: None Clinical information provided by:: patient Social determinants that could affect healthcare access:: none Patient has the following chronic illnesses:: n/a How is presenting disease/condition affected by chronic disease/condition?: no chronic disease Evaluation data The following diagnostics were reviewed and interpreted by me:: lab results Lab and/or radiology exams considered but not ordered:: lab and radiology exam considered and ordered Interpretation Summary: UA indicates UTI Medications / Prescriptions Medications or Prescriptions considered but not ordered:: medications considered and ordered Medication administrations:: per above Consultations Consultation(s) initiated? (list below): Yes Diagnosis Dizziness Differential Diagnosis: benign paroxysmal positional vertigo Most likely diagnosis given after review of the tests above:: UTI Admission Indicated Admission indicated?: not indicated Admission Request Was there a request for admission?: No Disposition Plan Disposition Plan: Discharge Discharge Attestation Discharge Attestation: The patient and all family members were given an opportunity to ask questions and understood the discharge instructions. Discharge instructions specifically effects, indications for sooner follow up or return to the emergency department, and the expected course of current diagnosis. Patient condition: Stable Discharge Plan Plan Patient Disposition: HOME (Self Care) Prescriptions/Referrals Prescriptions/Med Rec: New cefdinir 300 mg capsule 300 mg PO BID 7 Days Qty: 14 0RF meclizine 25 mg tablet 25 mg PO TID 7 Days Qty: 21 0RF No Action aspirin 81 mg tablet 81 mg PO QDAY 90 Days Qty: 90 4RF Classic 28 mg iron- 800 mcg tablet 1 tab PO QDAY 90 Days Qty: 90 8RF Referrals: Haim Brooks MD [Primary Care Provider, Family Practice] - In 1 week Problem List Clinical Impression: , Vertigo, Urinary tract infection Patient/Caregiver Discharge Instructions Education Materials: Vertigo Medicine Tx, ED CYSTITIS Female Adult Print Language: Syrian Stand Alone Forms: Mehnaz Award Info., Patient Portal Info Letter
--- NOTE | 2025-01-09 11:31 | XR_ITS ---
Examination: Complete OB ultrasound greater than 14 weeks Date and time of exam: January 09, 2025, 12:28 p.m. INDICATIONS: Dizziness fatigue today, early by history Findings: Viable intrauterine single fetus with single amniotic sac presentation transverse head maternal left Cardiac motion 155 bpm Placenta anterior grade 1 Umbilical cord insertion 3 vessels seen Amniotic fluid volume adequate spine posterior Cervix 3.8 cm Ovaries obscured by bowel gas. Composite estimated gestational age based on BPD, head circumference, abdominal circumference, femur length is 17 weeks 5 days Estimated weight 205 g. Survey of intracranial anatomy, spinal anatomy, abdominal anatomy, four-chamber heart performed with no abnormalities identified. Impression: Viable intrauterine gestation in transverse presentation.
[2025-01-09 12:16] LABS: Collection Type, Urine Voided
[2025-01-09 12:22] LABS: Basophils # (Auto) 0.0 Thou/mm3 (0.0-0.2); Basophils % (Auto) 0 % (0-2.5); Eosinophils # (Auto) 0.0 Thou/mm3 (0.0-0.5); Eosinophils % (Auto) 0 % (0-10); Hematocrit 36.6 % (36.0-46.0); Hemoglobin 12.3 g/dL (12.0-16.0); Immature Granulocytes Auto 0.03 Thou/mm3 (0.00-0.00); Lymphocytes # (Auto) 1.8 Thou/mm3 (1.0-4.8); Lymphocytes % (Auto) 20 % (10-50); Mean Corpuscular HGB Conc 33.6 g/dl (31.0-37.0); Mean Corpuscular Hemoglobin 28.3 pg (25.0-35.0); Mean Corpuscular Volume 84 fL (80-100); Monocytes # (Auto) 0.4 Thou/mm3 (0.0-0.8); Monocytes % (Auto) 4 % (0-12); Neutrophils # (Auto) 6.8 Thou/mm3 (1.8-7.7); Neutrophils % (Auto) 75 % (37-80); Nucleated Red Blood Cell # 0.00 Thou/mm3 (0.00-0.00); Nucleated Red Blood Cell % 0 /100 WBC (0); Platelet Count 248 Thou/mm3 (140-440); RDW Standard Deviation 44.2 fL (36.4-46.3); Red Blood Count 4.34 Miln/mm3 (4.00-5.20); White Blood Count 9.1 Thou/mm3 (3.6-11.0)
[2025-01-09 12:26] LABS: Bacteria,Urine 1+; Bilirubin,Urine Negative (Negative); Blood,Urine Negative (Negative); Clarity,Urine Turbid (Clear/Hazy); Color,Urine Lt-Yellow (Lt Yel-Yel); Culture Indicated,Urine Contaminated; Glucose, Urine Negative (Negative); Ketones,Urine Negative (Negative); Leukocyte Esterase,Urine Positive (Negative); Nitrite,Urine Negative (Negative); PH,Urine 6.0 (5.0-7.0); Protein,Urine Negative (Neg - Trace); RBC,Urine 8 /hpf (0-3); Specific Gravity,Urine 1.010 (1.001-1.035); Squamous Epithelial Cell,Urine 16 /hpf (0-5); Urobilinogen,Urine Negative mg/dL (0.0-1.0); WBC,Urine 30 /hpf (0-5)
[2025-01-09 12:47] LABS: Alanine Aminotransferase < 7 U/L (10-49); Albumin, Serum 4.3 gm/dL (3.5-5.0); Albumin/Globulin Ratio 1.7 (1.2-2.2); Alkaline Phosphatase 65 U/L (46-116); Anion Gap 11 (7-16); Aspartate Amino Transferase 14 U/L (0-34); BUN/Creatinine Ratio 9 Ratio (12-20); Bilirubin,Total 0.5 mg/dL (0.3-1.2); Blood Urea Nitrogen 6 mg/dL (9-23); Calcium 8.9 mg/dL (8.3-10.6); Calcium (Corrected) 8.9 mg/dL (8.5-10.1); Carbon Dioxide 23.5 mMol/L (20.0-31.0); Chloride 106 mMol/L (98-107); Creatinine (Component) 0.7 mg/dL (0.6-1.3); Estimated Creatinine Clearance 148.6 mL/min (>60); Globulin 2.6 gm/dL (2.3-3.5); Glucose 87 mg/dL (74-106); Osmolality,Calculated 276 (275-295); Potassium 4.3 mMol/L (3.4-5.1); Sodium 140 mMol/L (136-145); Total Protein 6.9 gm/dL (5.7-8.2); eGFR > 60 See Note
== END 2025-01-09 13:10 | disposition home or self-care (01) ==
PROVIDERS: Physician Assistant; Emergency Provider Emergency Medicine; PCP Family Medicine
DX: O03.88 Urinary tract infection following complete or unspecified spontaneous abortion (principal); N30.90 Cystitis, unspecified without hematuria; Z3A.17 17 weeks gestation of pregnancy; Z79.82 Long term (current) use of aspirin
CPT/HCPCS: 36415; 76805; 80053; 81001; 85025; 93005; 99283

== ENCOUNTER 2025-02-11 08:33 | Outpatient (AMB) | payer MEDICAID, SELFPAY ==
--- NOTE | 2025-02-11 08:46 | AMB.OBPNC ---
Vital Signs 02/11/25 08:47 Height 1.65 m Height Method Stated Weight 113.115 kg Weight Measurement Method Standing Scale BMI 41.5 BP 121/84 Blood Pressure Source Automatic Cuff Blood Pressure Location Left Upper Arm Position Sitting Respiration 18 Pulse 105 H Pulse Source Monitor Temp 98.2 F Temp Source Oral Pulse Oximetry (%) 98 Oxygen Delivery Method Room Air Allergies/Home Meds Allergies & Medications Allergies No Known Allergies Allergy (Verified 02/11/25 08:48) Medication Reconciliation aspirin 81 mg tablet 81 mg PO QDAY 90 days #90 tabs 12/03/24 [Rx Confirmed 02/11/25] vits no.126-ferrous fum 28 mg iron-folic acid 800 mcg tablet (Classic ) 1 tab PO QDAY 90 days #90 tabs 01/08/25 [Rx Confirmed 02/11/25] Immunizations Immunizations Flu Vaccine in the Last 12 Months: No Flu Vaccine Exclusion Criteria: No Exclusion Criteria Care OB Visit Log OB Flowsheet Initial Weight: Not Recorded Date <del>?</del> EGA Weight BP Alb Glu CTX Pres Fundal ht FHR Mov Dilation Station Effacement Hx Notes Visit Note 11/14/24 <del>?</del> 9w 0d 108.635 kg 117/79 OBI. Please see notes 12/03/24 <del>?</del> 11w 5d 109.429 kg 113/77 160 The patient has a history of . Denies WORKMAN, VC, and epigastric pain. - Mehnaz Garcia is presenting for a appointment at 11 weeks and 5 days gestation. - She is a 5 para 3. - Patient has a history of . - [facility] ultrasound performed today for nuchal translucency scan. - Results are still pending. - Bedside ultrasound shows heart rate of 160 bpm. Plan - Review pending results of [facility] ultrasound for nuchal translucency - Attend scheduled 2nd trimester anatomy ultrasound for placenta assessment in January - Continue routine care and monitoring 01/08/25 <del>?</del> 16w 6d 111.244 kg 110/75 165 - She reports starting to feel some movement. - Patient denies nausea, vomiting, or other issues and states everything is going well so far. - She ran out of vitamins after forgetting them at her sister's house over the weekend. - Patient has been prescribed baby aspirin but was uncertain about timing to start, waiting for clarification on whether to begin at 15 or 16 weeks gestation. - She reports adherence to prescribed medications when available. - Continue baby aspirin daily at consistent time until delivery - New prescription for vitamins to be sent to [facility] pharmacy - Follow-up appointment scheduled in 4 weeks - Anatomy ultrasound scheduled for 02-04-2025 - Monitor placenta placement due to history of C-sections - Monitor for cholestasis and hypertension (noting these typically occur after 30 weeks gestation) 02/11/25 <del>?</del> 21w 5d 113.115 kg 121/84 absent cephalic 22 155 active - Patient has been experiencing significant difficulty at work related to FMLA approval issues. - Her FMLA request is not being approved by her employer. - She is being disciplined by her supervisor shaving and splitting as a result. - She will return with additional paperwork from work to be completed. - Patient will return with additional paperwork to be filled out from her work regarding FMLA approval [employer] Calculator Estimated Delivery Date Method Current WG Current Estimate 06/19/25 Ultrasound #1 22w 4d Other Estimates 06/11/25 LMP (Uncertain) 23w 5d Notes Visit Date: 01/08/25 Last Updated by: José Miguel Brice MD - Date: 12/04/2024 - Maternal ultrasound: Dates consistent with established dates, cervix could not be visualized, both adnexa appeared unremarkable Visit Date: 12/03/24 Last Updated by: José Miguel Brice MD - Hepatitis B: Negative - Hepatitis C: Negative - RPR: Non-reactive - Rubella: Immune - ABO: Positive - Antibody screen: Negative - HIV: Non-reactive - Gonorrhea: Negative - Chlamydia: Negative - Hemoglobin: 11.2 g/dL - Platelets: 308 - A1c: 5.2% - NIPT genome testing: Negative, consistent with female - SMS screening: Negative - CF screening: Negative - Bedside ultrasound: FHR 160 bpm Office Procedures [facility] LOC & Office Proc's Nursing/Assessment Patient Status: Established Patient OB Clinic Nursing Assessment: Medication Reconciliation, Update PMH in EMR and Vital Signs OB Clinic Coordination of Care: Consent,records obtained, informed consent, Education Simp Pt/Fam, Lab and Imaging orders, Results/Orders obtained and Staff clarify orders Special Needs: Heart tones Established Patient Charge Established Patient Point Assignment: 110 Established Patient Point Charge: EP Level 3 (80-115) Assessment & Plan Diagnosis / Problem List (1) Maternal care for low transverse scar from previous delivery: Status: Acute
[2025-02-11 08:47] VITALS: BP 121/84; PULSE 105; RESP 18; TEMP 36.8; O2SAT 98; BMI 41.5
== END 2025-02-11 09:13 | disposition home or self-care (01) ==
LOC: HODSOBC 08:33
PROVIDERS: Supervising Provider Obstetrics & Gynecology; Visit Provider Obstetrics & Gynecology
DX: O09.292 Supervision of pregnancy with other poor reproductive or obstetric history, second trimester (principal); O34.211 Maternal care for low transverse scar from previous cesarean delivery; Z3A.21 21 weeks gestation of pregnancy
CPT/HCPCS: 99213; G0463

== ENCOUNTER 2025-02-22 09:46 | Observation (INO) | payer MEDICAID, SELFPAY ==
[2025-02-22] VITALS (32 sets, daily range): BP systolic 107; BP diastolic 65; PULSE 70–97; RESP 18–99; TEMP 36.8; O2SAT 98–100; BMI 41.5
--- NOTE | 2025-02-22 10:11 | XR_ITS ---
Examination: Complete OB ultrasound greater than 14 weeks Date and time of exam: 02/22/2025 at 10:57 a.m. comparison is made with the previous study of 01/09/2025 Findings: Viable intrauterine single fetus with single amniotic sac The fetus is currently in breech presentation. heart rate is normal at 152 beats per 4 chamber heart is identified. Placenta is situated on the mid anterior wall of the uterus in good position placenta grade is 1. The urinary bladder and kidneys and stomach and spine are all seen and appear unremarkable.. Cervical length is 4.4 cm which is all right. Amniotic fluid volume index is 11.4 cm which is normal the femur length is consistent with a gestational age of 24 weeks 4-day. Three-vessel umbilical cord is identified. The biparietal diameter and head circumference and abdominal circumference and the femur length are all consistent with an average gestational age of 23 weeks 5 days estimated weight is 634.8 g . Impression: 1 normal-appearing single intrauterine fetus in breech presentation. Current gestational age is 23 weeks 5 days, estimated date of delivery is June 17, 2019 2. Absolutely no abnormalities are seen anywhere on today's study.
== END 2025-02-22 12:55 | disposition home or self-care (01) ==
PROVIDERS: Admitting Provider Obstetrics & Gynecology; Visit Provider Obstetrics & Gynecology
DX: O26.892 Other specified pregnancy related conditions, second trimester (principal); Z3A.23 23 weeks gestation of pregnancy; R10.9 Unspecified abdominal pain; M54.9 Dorsalgia, unspecified; O32.8XX0 Maternal care for other malpresentation of fetus, not applicable or unspecified
CPT/HCPCS: 59899; 76805